=== PATIENT | female | born 1940 | race Caucasian/White ===

== ENCOUNTER 2018-08-29 00:05 | Emergency (ER) | payer OTHER ==
[~2018-08-29] VITALS: Ht 165.1 cm; Wt 91.6 kg
[2018-08-29 00:20] VITALS: BP 151/73
== END 2018-08-29 03:30 | disposition left against medical advice (07) ==
LOC: ER 00:05
DX: M54.5 Low back pain (principal); Z53.21 Procedure and treatment not carried out due to patient leaving prior to being seen by health care provider
CPT/HCPCS: 72131